=== PATIENT | female | born 1990 | race Caucasian/White ===

== ENCOUNTER 2021-05-02 11:16 | Emergency (ER) | payer OTHER ==
[~2021-05-02] VITALS: Ht 154.9 cm; Wt 68.0 kg
[2021-05-02] MEDS ORDERED: MEDROL 4MG DOSEP4 MG PO (13:00)
[2021-05-02] MEDS ORDERED: PROMETHAZINE-C473 ML PO (13:00)
== END 2021-05-02 13:10 | disposition home or self-care (01) ==
LOC: FER 11:16
DX: J20.9 Acute bronchitis, unspecified (principal); R73.03 Prediabetes; E78.5 Hyperlipidemia, unspecified; Z88.0 Allergy status to penicillin; Z79.899 Other long term (current) drug therapy; Z79.84 Long term (current) use of oral hypoglycemic drugs
CPT/HCPCS: 71046; J1100